=== PATIENT | male | born 1990 | race Caucasian/White ===

== ENCOUNTER 2020-08-01 14:03 | Emergency (ER) | payer OTHER ==
[~2020-08-01] VITALS: Ht 185.4 cm; Wt 63.5 kg
[2020-08-01 14:58] LABS: INFLUENZA A ANTIGEN Negative (Negative); INFLUENZA B ANTIGEN Negative (Negative)
[2020-08-01 15:07] VITALS: BP 145/70
== END 2020-08-01 15:07 | disposition home or self-care (01) ==
LOC: M.ERS 14:03
PROVIDERS: Emergency Medicine Emergency Medical Services
DX: B34.9 Viral infection, unspecified (principal); Z20.828 Contact with and (suspected) exposure to other viral communicable diseases

== ENCOUNTER 2020-09-26 12:44 | Emergency (ER) | payer OTHER ==
[~2020-09-26] VITALS: Ht 185.4 cm; Wt 72.6 kg
[2020-09-26 14:19] VITALS: BP 144/79
== END 2020-09-26 14:20 | disposition home or self-care (01) ==
LOC: M.ERS 12:44
DX: Z20.828 Contact with and (suspected) exposure to other viral communicable diseases (principal)

== ENCOUNTER 2020-10-16 12:14 | Emergency (ER) | payer OTHER ==
[~2020-10-16] VITALS: Ht 185.4 cm; Wt 72.6 kg
[2020-10-16 14:03] LABS: INFLUENZA A ANTIGEN Negative (Negative); INFLUENZA B ANTIGEN Negative (Negative)
[2020-10-16 14:21] VITALS: BP 140/70
== END 2020-10-16 14:22 | disposition home or self-care (01) ==
LOC: M.ERS 12:14
PROVIDERS: Nurse Practitioner Family
DX: B34.9 Viral infection, unspecified (principal); Z20.828 Contact with and (suspected) exposure to other viral communicable diseases

== ENCOUNTER 2020-12-08 22:35 | Emergency (ER) | payer OTHER ==
[~2020-12-08] VITALS: Ht 185.4 cm; Wt 72.6 kg
[2020-12-08] MEDS ORDERED: AUGMENTIN 875-1 EACH PO (23:33)
[2020-12-09 00:16] VITALS: BP 119/70
== END 2020-12-09 00:16 | disposition home or self-care (01) ==
LOC: M.ERS 22:35
DX: S61.412A Laceration without foreign body of left hand, initial encounter (principal); W55.01XA Bitten by cat, initial encounter; Y93.89 Activity, other specified; Y92.89 Other specified places as the place of occurrence of the external cause; Y99.8 Other external cause status